=== PATIENT | female | born 1955 | race Caucasian/White ===

== ENCOUNTER → 2017-12-15 | Outpatient (CLI) | payer OTHER ==
[~2017-12-15] MED LIST: MULTTAB67 PO; PROB1CHW5 CHEW
[2017-12-15 10:54] LABS: AUTOMATED NEUTROPHIL # 2.7 TH/MM3 (1.8-7.7); BASOPHIL % 0.8 % (0.0-2.0); EOSINOPHIL # 0.1 TH/MM3 (0-0.4); EOSINOPHIL % 2.5 % (0.0-4.0); LYMPH % 41.1 % (9.0-44.0); LYMPHOCYTE # 2.3 TH/MM3 (1.0-4.8); MEAN CELL VOLUME 90.4 FL (80.0-100.0); MEAN CORPUSCULAR HEMOGLOBIN 30.1 PG (27.0-34.0); MEAN CORPUSCULAR HGB CONC 33.3 % (32.0-36.0); MEAN PLATELET VOLUME 8.4 FL (7.0-11.0); MONO % 6.3 % (0.0-8.0); MONOCYTE # 0.3 TH/MM3 (0-0.9); NEUT % 49.3 % (16.0-70.0); PLATELET COUNT 293 TH/MM3 (150-450); RED BLOOD COUNT 4.31 MIL/MM3 (4.00-5.30); RED CELL DISTRIBUTION WIDTH 14.1 % (11.6-17.2); WHITE BLOOD COUNT 5.6 TH/MM3 (4.0-11.0)
[2017-12-15 10:58] LABS: PROTHROMBIN TIME - PATIENT 10.5 SEC (9.8-11.6)
[2017-12-15 11:07] LABS: ALBUMIN 4.1 GM/DL (3.4-5.0); BICARBONATE 30.1 MEQ/L (21.0-32.0); BLOOD UREA NITROGEN 14 MG/DL (7-18); CALCIUM 9.2 MG/DL (8.5-10.1); CHLORIDE 105 MEQ/L (98-107); GLOMERULAR FILTRATION RATE 102 ML/MIN (>89); GLUCOSE,FASTING 76 MG/DL (74-99); SODIUM (NA) 143 MEQ/L (136-145)
[2017-12-15 11:21] LABS: ALKALINE PHOSPHATASE 51 U/L (45-117); ALT (GPT) 19 U/L (10-53); AST (GOT) 14 U/L (15-37); TOTAL BILIRUBIN ADULT 0.5 MG/DL (0.2-1.0); TOTAL PROTEIN 7.9 GM/DL (6.4-8.2)
--- NOTE | 2017-12-15 11:35 | RADRPT ---
EXAM DATE/TIME: 12/15/2017 11:06 [place] COMPARISON: No previous studies available for comparison. INDICATIONS : Evaluate for pneumonia, pneumothorax and communicable diseases. Pre-op uterine surgery MEDICAL HISTORY : None. SURGICAL HISTORY : None. ENCOUNTER: Initial ACUITY: 1 day PAIN SCORE: 0/10 LOCATION: chest FINDINGS: PA and lateral views of the chest demonstrate the lungs to be symmetrically aerated without evidence of mass, infiltrate or effusion. The cardiomediastinal contours are unremarkable. Osseous structure s are intact. CONCLUSION: No acute disease. Jorden Delarosa MD on December 15, 2017 at 11:31 Board Certified Radiologist. This report was verified electronically.
--- NOTE | 2017-12-15 13:41 | EKG ---
Date Performed: 12/15/2017 Time Performed: 10:46:18 PTAGE: 62 years EKG: SINUS BRADYCARDIA POSSIBLE ANTERIOR MYOCARDIAL INFARCTION, OF INDETERMINATE AGE ABNORMAL EC G NO PREVIOUS TRACING DOCTOR: Alejandro Rodriguez Interpretating Date/Time 12/15/2017 13:17:37
== END ==
LOC: CPRE 10:00
PROVIDERS: ATTEND Obstetrics & Gynecology Gynecologic Oncology
DX: Z01.812 Encounter for preprocedural laboratory examination (principal); Z01.811 Encounter for preprocedural respiratory examination; Z01.810 Encounter for preprocedural cardiovascular examination; R19.09 Other intra-abdominal and pelvic swelling, mass and lump; R94.31 Abnormal electrocardiogram [ECG] [EKG]
CPT/HCPCS: 36415; 71046; 80053; 85025; 85610; 85730; 93005

== ENCOUNTER 2017-12-29 05:16 | Observation (INO) | payer OTHER ==
[2017-12-29] MEDS ORDERED: POVIDONE IODINE 5% (ANTISEPSIS KIT) 4 APPLICATIONS EACH NARE PRN (06:00)
[2017-12-29] MEDS ORDERED: LACTATED RINGER'S 1000 ML IV PRN (06:00)
[2017-12-29] MEDS ORDERED: METOPROLOL TARTRATE 25 MG TAB PO PRN (06:00)
[2017-12-29] MEDS ORDERED: HEPARIN SODIUM - SQ 10,000 UNITS/ML VIAL SQ SCH (06:00)
[2017-12-29] MEDS ORDERED: ceFAZolin 1,000 MG/NS 100 ML IV SCH ×2 (06:00)
[2017-12-29] MEDS ORDERED: CHLORHEXIDINE GLUCONATE 2 % 1 PACK (2 CLOTHS) TOPICAL PRN (06:00)
[2017-12-29] MEDS ORDERED: SODIUM CHLORID 0.9% 500 ML IV PRN (06:00)
[2017-12-29] MEDS ORDERED: SUGAMMADEX SODIUM 200 MG/2 ML VIAL IV PUSH ONE (07:05)
[2017-12-29] MEDS ORDERED: ACETAMINOPHEN 1000 MG/100 ML 0 ML IV ONE (07:05)
[2017-12-29] MEDS ORDERED: ARTIFICIAL TEARS OPTH OINT 3.5 APPLIC/3.5 GM TUBO ONE (07:06)
[2017-12-29] MEDS ORDERED: FAMOTIDINE 20 MG/2 ML VIAL ONE (07:08)
[2017-12-29] MEDS ORDERED: LIDOCAINE 1%/EPINEPHrine 1:100,000 SOLN 20 ML VIAL INFIL ONE (08:40)
[2017-12-29] MEDS ORDERED: DO NOT ADM ANY ANTICOAGULANT DRUGS PRN (11:00)
[2017-12-29] MEDS ORDERED: LORazepam 0.5 MG TAB PO PRN (11:15)
[2017-12-29] MEDS ORDERED: oxyCODONE/ACETAMINOPHEN 5 MG/325 MG TAB PO PRN ×2 (11:15)
[2017-12-29] MEDS ORDERED: diphenhydrAMINE HCL 25 MG CAP PO PRN (11:15)
[2017-12-29] MEDS ORDERED: SODIUM CHLORIDE 0.9% FLUSH 10 ML FLUSH IV FLUSH PRN (11:15)
[2017-12-29] MEDS ORDERED: MIDAZOLAM HCL 2 MG/2 ML VIAL ONE (11:32)
[2017-12-29] MEDS ORDERED: MORPHINE SULFATE 4 MG/ML INJ ONE (11:33)
[2017-12-29] MEDS ORDERED: PROPOFOL 200 MG/20 ML AMP IV ONE (12:00)
[2017-12-29] MEDS ORDERED: ROCURONIUM INJ 50 MG/5 ML SYRINGE IV PUSH ONE (12:00)
[2017-12-29] MEDS ORDERED: GLYCOPYRROLATE 1 MG/5 ML SYRINGE IV PUSH ONE (12:00)
[2017-12-29] MEDS ORDERED: ePHEDrine/NS 25 MG/5 ML SYRINGE IV ONE (12:00)
[2017-12-29] MEDS ORDERED: STERILE WATER FOR INJECTION 20 ML VIAL IV ONE (12:00)
[2017-12-29] MEDS ORDERED: ONDANSETRON HCL 4 MG/2 ML VIAL IV ONE (12:00)
[2017-12-29] MEDS ORDERED: VECURONIUM BROMIDE 20 MG VIAL IV ONE (12:00)
[2017-12-29] MEDS ORDERED: NORMOSOL R INJ 1,000 ML IV ONE (12:00)
[2017-12-29] MEDS ORDERED: NEOSTIGMINE 5 MG/5 ML SYRINGE IV PUSH ONE (12:00)
[2017-12-29] MEDS ORDERED: DEXAMETHASONE SOD PHOS 4 MG/ML VIAL IV ONE (12:00)
[2017-12-29] MEDS ORDERED: KETOROLAC TROMETHAMINE 30 MG/ML (IVP) VIAL IV PUSH ONE (12:00)
[2017-12-29] MEDS ORDERED: LIDOCAINE HCL 1% PF 5 ML SYRINGE OTHER ONE (12:00)
[2017-12-29 13:56] VITALS: BP 127/63; PULSE 67; RESP 13; TEMP 97.3; O2SAT 100
[2017-12-29] MEDS: ONDANSETRON HCL 4 MG/2 ML VIAL IVP PRN ×2 (14:02→19:52)
[2017-12-29] MEDS: KETOROLAC TROMETHAMINE 30 MG/ML (IVP) VIAL IVP SCH ×2 (14:02→19:51)
[2017-12-29 17:40] VITALS: BP 123/56; PULSE 69; RESP 14; TEMP 98.5; O2SAT 98
[2017-12-29 19:48] VITALS: BP 121/57; PULSE 66; RESP 16; TEMP 98.5; O2SAT 97
[2017-12-29] MEDS: SODIUM CHLORIDE 0.9% FLUSH 10 ML FLUSH IV FLUSH SCH (19:52)
[2017-12-29] MEDS: D5-1/2 NS + KCL 20 MEQ INJ 1,000 ML IV SCH (22:12)
[2017-12-30 00:07] VITALS: BP 111/54; PULSE 66; RESP 16; TEMP 99.1; O2SAT 98
[2017-12-30] MEDS: KETOROLAC TROMETHAMINE 30 MG/ML (IVP) VIAL IVP SCH ×2 (02:31→08:06)
[2017-12-30 05:28] VITALS: BP 113/51; PULSE 61; RESP 16; TEMP 98.9; O2SAT 98
[2017-12-30 06:56] LABS: AUTOMATED NEUTROPHIL # 7.1 TH/MM3 (1.8-7.7); BASOPHIL % 0.2 % (0.0-2.0); EOSINOPHIL % 0.1 % (0.0-4.0); HEMATOCRIT 33.7 % (35.0-46.0); HEMOGLOBIN 11.4 GM/DL (11.6-15.3); LYMPH % 19.1 % (9.0-44.0); LYMPHOCYTE # 1.8 TH/MM3 (1.0-4.8); MEAN CELL VOLUME 89.8 FL (80.0-100.0); MEAN CORPUSCULAR HEMOGLOBIN 30.4 PG (27.0-34.0); MEAN CORPUSCULAR HGB CONC 33.8 % (32.0-36.0); MEAN PLATELET VOLUME 8.5 FL (7.0-11.0); MONO % 6.6 % (0.0-8.0); MONOCYTE # 0.6 TH/MM3 (0-0.9); PLATELET COUNT 272 TH/MM3 (150-450); RED BLOOD COUNT 3.75 MIL/MM3 (4.00-5.30); RED CELL DISTRIBUTION WIDTH 13.9 % (11.6-17.2); WHITE BLOOD COUNT 9.6 TH/MM3 (4.0-11.0)
[2017-12-30 07:21] LABS: CALCIUM 7.7 MG/DL (8.5-10.1); CREATININE 0.54 MG/DL (0.50-1.00)
[2017-12-30 08:00] VITALS: BP 112/57; PULSE 60; RESP 18; TEMP 98.5; O2SAT 98
[2017-12-30] MEDS: D5-1/2 NS + KCL 20 MEQ INJ 1,000 ML IV SCH (08:06)
[2017-12-30] MEDS ORDERED: OXYC1TAB63 PO (08:34)
--- NOTE | 2017-12-30 08:57 | MD ---
cc: Sharon Ly MD, Heather DATE OF DISCHARGE: PROCEDURE PERFORMED: On 12/29/2017, robotic-assisted laparoscopic hysterectomy, bilateral salpingo-oophorectomy (with resection of 18 cm cystic left ovarian mass). HOSPITAL COURSE: She has done well in her early postop period, hemodynamically stable, adequate pain control. She is tolerating oral intake satisfactorily. Ins and outs 3910/3550. Labs this morning, H and H 11.4 and 33.7. Electrolytes, no significant abnormality. Potassium is 3.9, BUN and creatinine 5 and 0.54. PHYSICAL EXAMINATION: VITAL SIGNS: She is afebrile. Pulses range from 61-69, respirations 14-16, blood pressure 111-127/51-63, O2 saturations greater than or equal to 98% while awake. GENERAL: She is alert and oriented x 3. LUNGS: Clear. Mild rales at the bases. CARDIOVASCULAR: Regular rate and rhythm. ABDOMEN: Soft. Incisions clean and dry. GYNECOLOGIC: No bleeding reported. EXTREMITIES: Nontender. ASSESSMENT: Postoperative day #1, doing well in early postoperative period. Steps taken and preliminary pathology discussed. Activities and restrictions reviewed. Questions were asked and answered. She expressed good understanding and would like to go home today. PLAN: she will meet criteria for discharge to home. She will be discharged. She is to resume her prior vitamin supplementation. She takes no other prescription medications and will have a prescription for Percocet for pain if she needs it and has been instructed regarding [id number] medications if she does not need the Percocet. She is to keep the incisions clean and dry for the next 3 days. All her questions were asked and answered. She expressed good understanding and agrees. Our office number is made available again, she is to contact our office to ensure she has a followup scheduled within 2 weeks. MD RAJAT Martinez/OREN , 08:38 AM , 08:56 AM
[2017-12-30] MEDS: SODIUM CHLORIDE 0.9% FLUSH 10 ML FLUSH IV FLUSH SCH (09:00)
[2017-12-30 09:06] VITALS: RESP 18
--- NOTE | 2017-12-30 09:27 | MP ---
cc: Sharon Ly MD DATE OF OPERATION: 12/29/2017 Cc: Chitra Moore DATE OF PROCEDURE: 12/29/2017. PREOPERATIVE DIAGNOSIS: Large cystic pelvic mass. POSTOPERATIVE DIAGNOSIS: Left ovarian mucinous cystadenoma. PROCEDURE PERFORMED: Robotic-assisted laparoscopic hysterectomy, bilateral salpingo-oophorectomy (with resection of 18 cm left ovarian mass). 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 ANESTHESIA: General endotracheal anesthesia. ESTIMATED BLOOD LOSS: 150 mL IV FLUIDS: 1700 mL URINE OUTPUT: 300 mL HISTORY: A 62-year-old female who has noticed increasing abdominal distention, pressure, noting that her clothes did not fit, found on exam and imaging to have a predominantly cystic mass, smooth walled with some internal septations. Imaging has included a CAT scan and MRI scan which confirmed these findings. There is no adenopathy, no ascites, no omental thickening, peritoneal nodularity or other findings noted. CA-125 was normal. She was counseled regarding recommendations for surgery in our office and she is seen again in the preop holding area where the findings are again reviewed. She is absolutely certain that she wants a complete hysterectomy to remove the uterus and cervix, irrespective of the pathology understanding that if the mass is benign a hysterectomy is somewhat of a judgment call. The pros and cons are again discussed. She has given it much thought. She wants both tubes and ovaries removed as well as complete hysterectomy. Furthermore, she understands it will be sent for frozen section analysis. If any malignancy is detected, additional staging biopsies may be considered and she understands. FINDINGS: The uterus was markedly deviated to the right due to the large pelvic mass on the left side. The Uterine cavity was sounded to approximately 8 cm. There was a fundal mass approximately 3-4 cm on the uterus that grossly and at the time of pathology appeared to be a leiomyoma. The right tube and ovary appeared normal. The left ovary was replaced by a large cystic mass with internal septations. There was a combination of some an mucinous fluid as well as a clear fluid, that the overall appearance was that of a benign entity. The peritoneal anatomy was otherwise normal. Liver and diaphragm edges were smooth. Omentum, large and small bowel and adjacent mesentery were normal, without peritoneal implants. There was no adenopathy. Frozen section analysis of the left ovary showed it to be a mucinous cystadenoma, benign, and what appeared to be a benign leiomyoma in the uterus. No other findings detected. PROCEDURE: She was taken to the operating room and placed in dorsal lithotomy position, after general endotracheal anesthesia was administered. Timeout was undertaken. She was identified by site recognition and hospital ID bracelet and the proposed procedure was reviewed and confirmed. She was carefully positioned in padded Khoa stirrups. Her arms were padded and secured to the sides. She was further secured to the operating table with eggcrate padding and tape in a crossed chest, over the shoulder fashion. All sites were noted to be properly aligned with no malalignment or pressure points. She was prepped and draped in sterile fashion, placed in lithotomy position. The cervix grasped, the cervix dilated, sounded to 8 cm. Standard V-Care manipulator was inserted and secured in usual fashion. Way catheter was placed in the bladder. She was returned to low lithotomy position and we completed draping in anticipation of laparoscopy. Change of sterile gloves was undertaken and we confirmed that an orogastric tube was in the stomach on suction. With manual elevation of the abdominal wall, direct laparoscopic visualization, 5 mm cannula introduced into the left upper abdomen. Carbon dioxide gas was insufflated. A 12 mm cannula was placed in the midline above the umbilicus, an 8 mm cannula placed in the right upper quadrant and left lateral quadrant, the original 5 exchanged for an 8 mm cannula. Anatomy was surveyed with findings as described above. The mass was large and precluded operative assessment laparoscopically cholecystectomy. Because of its was benign characteristics, it was felt reasonable to aspirate the mass. The mass was aspirated and approximately 1400 mL of fluid were removed, which helped reduce the size of the mass. It made it more manageable surgically. The V-Care was noted to have perforation to the uterine fundus. This was withdrawn and repositioned so that the apex of the V-Care was within the uterine cavity. She was placed in steep Trendelenburg position. It should be noted that peritoneal washings were obtained prior to aspirating the mass. The anatomy was surveyed with findings as described above. The small bowel was folded back on its mesenteric root and 3 Ray-Kevin sponges were placed around the root of the small bowel mesentery. The robotic system brought into the operative field, attached in the usual fashion. Needle drivers were introduced as a 0 Vicryl suture was introduced and a couple of [id number] sutures were placed in the uterine fundus to reapproximate the fundus, which allowed the V-Care to stay in proper position for the remainder of the case. Sutures were tied via instrument tie. The needle was cut and removed. Monopolar scissors, fenestrated bipolar forceps and ProGrasp manipulators were now placed in arms #1, 2 and 3 respectively. Left retroperitoneal dissection was carried out. The left round ligament was isolated, cauterized and transected. The anterior and posterior leaves of the broad ligament were opened. The colon was mobilized. The left ureter was identified and the left infundibulopelvic ligament was isolated. The intervening peritoneum was opened and the infundibulopelvic ligament was dissected to the level of the pelvic brim. Needle drivers were again introduced, 0 Vicryl ties were introduced and the infundibulopelvic ligament was tied securely x2 at the level of the pelvic brim. The instruments were returned. The distal portion of the vessels was cauterized and transected. Posterior peritoneum opened along the left side of the uterus and cervix, left vesicouterine peritoneum dissected off the lower uterine segment and cervix. Left uterine vessels were skeletonized, cauterized and transected as were the cardinal, paracervical and uterosacral ligaments. Attention was directed toward the right side. Right round ligament, isolated, cauterized, transected. Anterior and posterior leaves of the broad ligament were opened. Right ureter was identified. Right infundibulopelvic ligament was isolated. The intervening peritoneum was opened. The infundibulopelvic ligament was isolated to the pelvic brim where it was cauterized and transected. Posterior peritoneum opened along the right side of the uterus and cervix, the right vesicouterine peritoneum dissected off the lower uterine segment and cervix. Right uterine vessels were skeletonized. The right uterine vessels were now cauterized and transected as were the cardinal, paracervical and uterosacral ligaments thereby freeing the attachments to both sides of the uterus and cervix. A circumferential colpotomy was performed the cervix from the upper vagina and the specimen was able to be delivered transvaginally which included uterus, cervix and both tubes and ovaries, including the attached and partially collapsed left ovarian cystic mass. Instruments 1 and 3 were exchanged for needle drivers. 0 Vicryl suture was introduced. The vaginal cuff was closed starting at the left corner, full thickness closure, incorporating the posterior peritoneum and edge of the uterosacral ligament, tied the instrument tie. The closure was held on countertraction as a running continuous, full thickness closure which carried across the vaginal cuff to the contralateral corner where it was similarly fixed, secured and tied instrument tie. The needle was cut. Pelvis was thoroughly irrigated and small bleeders rendered hemostatic with bipolar cautery. There was a good margin between the edge of the bladder and the vaginal cuff suture line. Good peristalsis of ureters bilaterally. Pathology came back showing benign findings. Therefore, it was felt that all reasonable surgical objectives in this patient had been completed. Robotic instruments were removed. The robotic system was disengaged from the operative field. I reentered the bedside under sterile condition. Each of the 3 Ray-Kevin sponges that had been placed in the peritoneal cavity each were removed individually and inspected and noted to be removed in their entirety. Inspection confirmed that all sites were hemostatic. There were no remaining foreign objects in the peritoneal cavity. Preliminary counts were correct and attention was directed toward closing. The 12 mm fascial defect was closed with interrupted 0 Vicryl sutures using a needle pass apparatus and these were tied securely, rendering the fascia completely airtight and hemostatic. The remaining cannulas were withdrawn, carbon dioxide gas was removed. 3-0 Vicryl subcutaneous and 3-0 Vicryl subcuticular were used to close these incisions and they were secured with Steri-Strips. She was returned to dorsal lithotomy position. Exam confirmed the vaginal cuff was well well-supported, hemostatic. No vaginal lacerations. No remaining foreign objects in the vagina. Final counts were correct. She was returned to dorsal supine position and was pending reversal of anesthesia when I left the operating room to precede her to the Postanesthesia Care Unit. MD RAJAT Martinez/YU , 08:47 AM , 09:26 AM
== END 2017-12-30 10:10 | disposition home or self-care (01) ==
LOC: HSDC 05:16 → HSDI 11:07 → HCIN 12:48
PROVIDERS: ADMIT Obstetrics & Gynecology Gynecologic Oncology; ATTEND Obstetrics & Gynecology Gynecologic Oncology
DX: R19.00 Intra-abdominal and pelvic swelling, mass and lump, unspecified site (principal); D25.9 Leiomyoma of uterus, unspecified; D27.1 Benign neoplasm of left ovary; N85.8 Other specified noninflammatory disorders of uterus
CPT/HCPCS: 00840; 58571; 58662; 80048; 85025; 86850; 86900; 86901; 88112; 88307; 88331; 94150; 96365; 96366; 96375; 96376; G0378; J0690; J1100; J1644; J1885; J2250; J2270; J2405; J2710; J3010; J3480; J7120; S2900; J0131